=== PATIENT | male | born 1990 | race Caucasian/White ===

== ENCOUNTER 2020-06-21 22:49 | Emergency (ER) | payer OTHER ==
[~2020-06-21] VITALS: Ht 188 cm; Wt 96.2 kg
[2020-06-21 23:00] VITALS: BP 150/103
--- NOTE | 2020-06-21 23:22 | NUR ---
ERMD EXAMINING PT
[2020-06-21] MEDS ORDERED: AMMONIA AROMATIC 1 INHL INH ONE (23:35)
[2020-06-22 01:40] VITALS: BP 150/103
--- NOTE | 2020-06-22 01:40 | NUR ---
Patient discharged with v/s stable. Written and verbal after care instructions given and explained. Patient verbalized understanding. Ambulatory with steady gait. All questions addressed prior to discharge. Advised to follow up with PMD.
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
== END 2020-06-22 01:40 | disposition home or self-care (01) ==
LOC: MED 22:49
DX: F10.129 Alcohol abuse with intoxication, unspecified (principal); Y90.9 Presence of alcohol in blood, level not specified
CPT/HCPCS: 99283